=== PATIENT | male | born 1980 | race Caucasian/White ===

== ENCOUNTER → 2017-01-02 | Emergency (ER) | payer OTHER ==
--- NOTE | 2017-01-02 11:09 | ED CLINICAL REPORT ---
Clinical Report - Physicians/Mid Levels [facility] [address] [place] [address] 01/02/2017 9:17 Patient: JASMIN PARTIDA Time Seen: 10:25 Jan 02 2017. Arrived- By private vehicle. Historian- patient. CPT: ER phys charges level 4 (#[id number]). HISTORY OF PRESENT ILLNESS Chief Complaint: BACK PAIN. It is described as being moderate in degree. It is described as being in the area of the left upper lumbar spine, left mid lumbar spine, left lower lumbar spine, lower lumbar spine and right upper lumbar spine. It is described as being in the area of the right mid lumbar spine and right lower lumbar spine and radiating to the right thigh and to the left thigh. The quality is noted to be sharp, aching, "pain" and similar to prior episodes. Onset was yesterday and it is still present. No bladder dysfunction, bowel dysfunction, sensory loss or motor loss. Patient notes an injury. Mechanism of injury- (Came on after sex.). No other injury. Similar symptoms previously: Recent medical care: Not recently seen/assessed. REVIEW OF SYSTEMS No fever, chills, eye irritation, difficulty with urination or urinary frequency. No hematuria, skin rash, sore throat, cough or difficulty breathing. No chest pain, abdominal pain, nausea, vomiting or diarrhea. All systems otherwise negative, except as recorded above. PAST HISTORY Has had back injury. He has had prior back pain. Lifestyle / Substance Problems. Pneumonia. Puncture Wound. Epididymitis. Nephrolithiasis. Dental Caries. Dental Pain. Anxiety Reaction. Depression. Lumbar Strain. Asthma. Laceration. Arthritis. Bronchitis. Gastroesophageal Reflux Disease. Medications: Omeprazole Oral. Ibuprofen Oral. RisperiDONE Oral. Synthroid Oral. Zoloft Oral. Allergies: Vicodin. SOCIAL HISTORY Heavy tobacco smoker (cigarette)- less than 1 pack per day. Occasional alcohol use. No drug use. ADDITIONAL NOTES The nursing notes have been reviewed. PHYSICAL EXAM Vital Signs: 01/02/2017 09:39 BP: 115/80. HR: 87. RR: 20. O2 saturation: 99%. Temp: 98.2 F. Pain level now: 05/24. Appearance: Alert. Appears to be in pain. Patient in moderate distress. HEENT: Normal external inspection. ENT: Pharynx normal. Neck: Normal inspection. Neck nontender. Painless ROM. CVS: Heart sounds normal. Pulses normal. Respiratory: No respiratory distress. Breath sounds normal. Abdomen: No visible injury. Soft and nontender. Bowel sounds normal. Back: Moderate soft tissue tenderness in the right lower and left lower thoracic area and right upper, mid and lower and upper, mid and lower central lumbar area. Skin: Skin warm. Normal skin color. No rash. Extremities: Extremities exhibit normal ROM. Extremities nontender. Neuro: Oriented X 3. Mood/affect normal. No motor deficit. No sensory deficit. Reflexes normal. PROGRESS AND PROCEDURES Course of Care: Dilaudid 1mg IM Ativan 1 mg IM Toradol 60 mg IM Patient is stable. Symptoms better. Patient/family counseled. Disposition: Discharged. Condition: stable and improved. CLINICAL IMPRESSION Acute exacerbation of chronic low back pain. INSTRUCTIONS Warnings: SEDATIVE MEDICATION: You were given sedative medication during your visit. Do not drive or operate dangerous machinery. Your Current Medications: CONTINUE TAKING THE FOLLOWING MEDICATIONS: Ibuprofen Oral. Omeprazole Oral. RisperiDONE Oral. Synthroid Oral. Zoloft Oral. Prescription Medications: Ibuprofen 600mg tablets: take 1 tablet orally every 8 hours as needed for pain. Dispense thirty (30). No refills. Robaxin 750 mg: Take 2 orally every 6 hours as needed for muscle spasm. Dispense thirty (30). No refills. Substitution is permissible. Ultram 50 mg tablets: take 1-2 orally every 6 hours as needed for pain. Dispense twenty (20). No refills. Substitution is permissible. Follow-up: Follow up with your doctor in one week. Call for an appointment. Understanding of the discharge instructions verbalized by patient. Discharge instructions reviewed with and understanding was verbalized by spouse. (Electronically signed by Joshua Mix MD 01/06/2017 8:33)
--- NOTE | 2017-01-02 11:09 | ED CLINICAL REPORT ---
Clinical Report - Physicians/Mid Levels [facility] [address] [place] [address] 01/02/2017 9:17 Patient: JASMIN PARTIDA Time Seen: 10:25 Jan 02 2017. Arrived- By private vehicle. Historian- patient. CPT: ER phys charges level 4 (#[id number]). HISTORY OF PRESENT ILLNESS Chief Complaint: BACK PAIN. It is described as being moderate in degree. It is described as being in the area of the left upper lumbar spine, left mid lumbar spine, left lower lumbar spine, lower lumbar spine and right upper lumbar spine. It is described as being in the area of the right mid lumbar spine and right lower lumbar spine and radiating to the right thigh and to the left thigh. The quality is noted to be sharp, aching, "pain" and similar to prior episodes. Onset was yesterday and it is still present. No bladder dysfunction, bowel dysfunction, sensory loss or motor loss. Patient notes an injury. Mechanism of injury- (Came on after sex.). No other injury. Similar symptoms previously: Recent medical care: Not recently seen/assessed. REVIEW OF SYSTEMS No fever, chills, eye irritation, difficulty with urination or urinary frequency. No hematuria, skin rash, sore throat, cough or difficulty breathing. No chest pain, abdominal pain, nausea, vomiting or diarrhea. All systems otherwise negative, except as recorded above. PAST HISTORY Has had back injury. He has had prior back pain. Lifestyle / Substance Problems. Pneumonia. Puncture Wound. Epididymitis. Nephrolithiasis. Dental Caries. Dental Pain. Anxiety Reaction. Depression. Lumbar Strain. Asthma. Laceration. Arthritis. Bronchitis. Gastroesophageal Reflux Disease. Medications: Omeprazole Oral. Ibuprofen Oral. RisperiDONE Oral. Synthroid Oral. Zoloft Oral. Allergies: Vicodin. SOCIAL HISTORY Heavy tobacco smoker (cigarette)- less than 1 pack per day. Occasional alcohol use. No drug use. ADDITIONAL NOTES The nursing notes have been reviewed. PHYSICAL EXAM Vital Signs: 01/02/2017 09:39 BP: 115/80. HR: 87. RR: 20. O2 saturation: 99%. Temp: 98.2 F. Pain level now: 05/24. Appearance: Alert. Appears to be in pain. Patient in moderate distress. HEENT: Normal external inspection. ENT: Pharynx normal. Neck: Normal inspection. Neck nontender. Painless ROM. CVS: Heart sounds normal. Pulses normal. Respiratory: No respiratory distress. Breath sounds normal. Abdomen: No visible injury. Soft and nontender. Bowel sounds normal. Back: Moderate soft tissue tenderness in the right lower and left lower thoracic area and right upper, mid and lower and upper, mid and lower central lumbar area. Skin: Skin warm. Normal skin color. No rash. Extremities: Extremities exhibit normal ROM. Extremities nontender. Neuro: Oriented X 3. Mood/affect normal. No motor deficit. No sensory deficit. Reflexes normal. PROGRESS AND PROCEDURES Course of Care: Dilaudid 1mg IM Ativan 1 mg IM Toradol 60 mg IM Patient is stable. Symptoms better. Patient/family counseled. Disposition: Discharged. Condition: stable and improved. CLINICAL IMPRESSION Acute exacerbation of chronic low back pain. INSTRUCTIONS Warnings: SEDATIVE MEDICATION: You were given sedative medication during your visit. Do not drive or operate dangerous machinery. Your Current Medications: CONTINUE TAKING THE FOLLOWING MEDICATIONS: Ibuprofen Oral. Omeprazole Oral. RisperiDONE Oral. Synthroid Oral. Zoloft Oral. Prescription Medications: Ibuprofen 600mg tablets: take 1 tablet orally every 8 hours as needed for pain. Dispense thirty (30). No refills. Robaxin 750 mg: Take 2 orally every 6 hours as needed for muscle spasm. Dispense thirty (30). No refills. Substitution is permissible. Ultram 50 mg tablets: take 1-2 orally every 6 hours as needed for pain. Dispense twenty (20). No refills. Substitution is permissible. Follow-up: Follow up with your doctor in one week. Call for an appointment. Understanding of the discharge instructions verbalized by patient. Discharge instructions reviewed with and understanding was verbalized by spouse. (Electronically signed by Joshua Mix MD 01/06/2017 8:33)
--- NOTE | 2017-01-02 11:09 | ED NURSING NOTES ---
Clinical Report - Nurses [facility] [address] [place] [address] 01/02/2017 9:17 Patient: JASMIN PARTIDA TRIAGE Triage time 09:39. Acuity: LEVEL 4. Chief Complaint: (Low back pain onset yesterday after intercourse. Hx low back pain. Pain radiates up his back and down both legs.). 09:45 01/02/17. SEPSIS SCREEN: Sepsis Screen. Negative (no infection suspected/documented). TIFFANY COMA SCORE: Novelty Coma Scale: 15- eyes open spontaneously (4); best verbal response- oriented x 4 (5); best motor response- obeys commands (6). --09:45 Andres Schaefer R.N. 09:39 01/02/17. BP: 115/80 (regular adult cuff) taken on the right arm, while sitting. HR: 87. RR: 20. O2 saturation: 99% on room air. Temp: 98.2 F (oral). Pain level now: 05/24. Additional comments: by pulse ox. --09:45 Andres Schaefer R.N. Weight: 106.5 kg stated. Height/Length: 71 inches Per Patient. BMI: 32.8. --09:40 Andres Schaefer R.N. Medications RisperiDONE Oral. Synthroid Oral. Zoloft Oral. --09:41 Andres Schaefer R.N. Ibuprofen Oral. --09:42 Andres Schaefer R.N. Omeprazole Oral. --09:42 Andres Schaefer R.N. Allergies Vicodin. --09:41 Andres Schaefer R.N. History Arrived by private vehicle. Historian: patient. Accompanied by family. SOCIAL HX: Heavy tobacco smoker (cigarette)- less than 1 pack per day. Occasional alcohol use. No drug use. ABUSE ASSESSMENT: No report of abuse. --09:45 Andres Schaefer R.N. PROBLEMS: Lifestyle / Substance Problems. Pneumonia. Puncture Wound. Epididymitis. Nephrolithiasis. Dental Caries. Dental Pain. Anxiety Reaction. Depression. Lumbar Strain. Asthma. Laceration. Arthritis. Bronchitis. Gastroesophageal Reflux Disease. --09:42 Andres Schaefer R.N. ADDITIONAL SURGERIES: Tonsillectomy. --09:42 Andres Schaefer R.N. Interventions ID band on patient. To treatment room. --09:45 Andres Schaefer R.N. PHYSICAL ASSESSMENT 09:48 01/02/17. Ambulatory to room. ( Low back pain that radiates up his back and down into his legs.). GENERAL / NEURO / PSYCH: Alert. Oriented X 4. Appears in pain. Shuffling gait. HEENT: Pupils equal, round and reactive to light. No facial asymmetry noted. Mucous membranes are pink. RESPIRATORY: Respirations not labored. Chest nontender. Breath sounds within normal limits. CVS: Capillary refill less than 2 seconds. Pulses within normal limits. GI / : Abdomen soft and nontender and normal bowel sounds. SKIN: Skin is warm and dry. --09:50 Andres Schaefer R.N. NURSING PROGRESS NOTES 09:50 01/02/17. Patient gowned. Reassurance given. Two patient identifiers checked. Call light placed in reach. Bed placed in lowest position. Brakes of bed on. Patient placed in chair. Patient ready for evaluation- chart flagged. --09:50 Andres Schaefer R.N. 11:00 01/02/2017 Dilaudid (HYDROmorphone HCl PF) IM 1 mg given. Given in the left gluteus benjamin. Allergies verified, confirmed 5 rights and sedative warning given to the patient and patient's family. --11:19 Andres Schaefer R.N. 11:00 01/02/2017 Toradol (Ketorolac Tromethamine) IM 60 mg given. Given in the right gluteus benjamin. Allergies verified and confirmed 5 rights. --11:19 Andres Schaefer R.N. 11:01/02/2017 Ativan (LORazepam) IM 1 mg given. Given in the right gluteus benjamin. Allergies verified, confirmed 5 rights and sedative warning given to the patient and patient's family. --11:20 Andres Schaefer R.N. DISPOSITION / DISCHARGE Condition at departure: improved. No learning barriers present. Reviewed medication(s) side effects, precautions, dosing and course information. Prescription(s) given to the patient. Patient verbalized understanding. Written instructions provided in Macedonian. The patient was discharged home and accompanied by spouse. He left the Emergency Department ambulatory and via private vehicle. Spouse driving. Medication list reviewed and validated. --11:22 Rose Mary Yan R.N. 11:21 01/02/17. BP: 116/76. HR: 82. RR: 20. O2 saturation: 99%. Temp: deferred. Pain level now: 03/23. 09:39 01/02/17. BP: 115/80 (regular adult cuff) taken on the right arm, while sitting. HR: 87. RR: 20. O2 saturation: 99% on room air. Temp: 98.2 F (oral). Pain level now: 05/24. Additional comments: by pulse ox. --11:22 Rose Mary Yan R.N. Locked/Released at 01/02/2017 11:23 by Rose Mary Yan R.N.
--- NOTE | 2017-01-02 11:09 | ED ORDER SUMMARY ---
..... Patient: JASMIN PARTIDA OrderSheet [facility] VisitID: [id number] [address] [place] [address] 36y, M Registration Date/Time: 01/02/2017 ORDER SHEET Weight: 106.5 kg (stated) Allergies: Vicodin GENERAL ORDERS: MEDICATION ORDERS: Dilaudid IM 1 mg (NOW) (10:01/02/2017 Nikky VICENTE) (Ack 10:56 DMaziarka R.N.) (11:19 JSimbeck R.N.) Toradol IM 60 mg (NOW) (10:01/02/2017 Nikky VICENTE) (Ack 10:56 DMaziarka R.N.) (11:19 JSimbeck R.N.) Ativan IM 1 mg (NOW) (:01/02/2017 Nikky VICENTE) (Ack 10:56 DMaziarka R.N.) (11:20 JSimbeck R.N.) IV FLUIDS: ORDER SHEET NOTES: [Electronically signed by Rose Mary Yan R.N. (11:01/02/2017)] [Electronically signed by Joshua Mix MD (08:33 01/06/2017)] [Electronically locked/signed by Rose Mary Yan R.N. (11:01/02/2017)]
--- NOTE | 2017-01-02 11:09 | ED ORDER SUMMARY ---
..... Patient: JASMIN PARTIDA OrderSheet [facility] VisitID: [id number] [address] [place] [address] 36y, M Registration Date/Time: 01/02/2017 ORDER SHEET Weight: 106.5 kg (stated) Allergies: Vicodin GENERAL ORDERS: MEDICATION ORDERS: Dilaudid IM 1 mg (NOW) (10:01/02/2017 Nikky VICENTE) (Ack 10:56 DMaziarka R.N.) (11:19 JSimbeck R.N.) Toradol IM 60 mg (NOW) (10:01/02/2017 Nikky VICENTE) (Ack 10:56 DMaziarka R.N.) (11:19 JSimbeck R.N.) Ativan IM 1 mg (NOW) (:01/02/2017 Nikky VICENTE) (Ack 10:56 DMaziarka R.N.) (11:20 JSimbeck R.N.) IV FLUIDS: ORDER SHEET NOTES: [Electronically signed by Rose Mary Yan R.N. (11:01/02/2017)] [Electronically signed by Joshua Mix MD (08:33 01/06/2017)] [Electronically locked/signed by Rose Mary Yan R.N. (11:01/02/2017)]
--- NOTE | 2017-01-06 08:34 | ED MAR SUMMARY ---
..... Medication Administration Record Merged With [facility] [address] [place] [address] Patient: JASMIN PARTIDA Visit ID: [id number] 36y, M Weight: 106.5 kg Height/Length: 71 in BMI: 32.8 ALLERGIES: Vicodin Given 11:01/02/2017 Andres Schaefer R.N. Medication Administered: DILAUDID [IM] (HYDROMORPHONE HCL PF), Dose: 1 mg IM. Medication Ordered: Dilaudid IM 1 mg (NOW). Given 11:01/02/2017 Andres Schaefer R.N. Medication Administered: TORADOL [IM] (KETOROLAC TROMETHAMINE), Dose: 60 mg IM. Medication Ordered: Toradol IM 60 mg (NOW). Given 11:01/02/2017 Andres Schaefer R.N. Medication Administered: ATIVAN [IM] (LORAZEPAM), Dose: 1 mg IM. Medication Ordered: Ativan IM 1 mg (NOW).
--- NOTE | 2017-01-06 08:34 | ED MED RECONCILIATION SUMMARY ---
Patient: JASMIN PARTIDA Medication Reconciliation Report [facility] VisitID: [id number] [address] [place] [address] 36y, M Registration Date/Time: 01/02/2017 Weight: 106.5 kg Height/Length: 71 in. BMI: 32.8 ALLERGIES: Vicodin The patient's Home Medications are listed below: CONTINUE TAKING THE FOLLOWING MEDICATIONS: Ibuprofen Oral Omeprazole Oral RisperiDONE Oral Synthroid Oral Zoloft Oral The source(s) of the original Home Medication information: Not obtained. The following Medications were given to the patient in the Emergency Department: Dilaudid [IM] IM 1 mg, administered: 01/02/2017 11:00:00 AM Toradol [IM] IM 60 mg, administered: 01/02/2017 11:00:00 AM Ativan [IM] IM 1 mg, administered: 01/02/2017 11:00:00 AM The following Medications were prescribed to the patient: Ibuprofen 600mg tablets: take 1 tablet orally every 8 hours as needed for pain. Dispense thirty (30). No refills. -- Joshua Mix MD Robaxin 750 mg: Take 2 orally every 6 hours as needed for muscle spasm. Dispense thirty (30). No refills. Substitution is permissible. -- Joshua Mix MD Ultram 50 mg tablets: take 1-2 orally every 6 hours as needed for pain. Dispense twenty (20). No refills. Substitution is permissible. -- Joshua Mix MD
--- NOTE | 2017-01-06 08:34 | ED DISCHARGE INSTRUCTIONS ---
Patient: JASMIN PARTIDA General Instructions [facility] VisitID: [id number] [place] [address] 36y, M Registration Date/Time: 01/02/2017 Acute exacerbation of chronic low back pain. INSTRUCTIONS Warnings: SEDATIVE MEDICATION: You were given sedative medication during your visit. Do not drive or operate dangerous machinery. Your Current Medications: CONTINUE TAKING THE FOLLOWING MEDICATIONS: Ibuprofen Oral. Omeprazole Oral. RisperiDONE Oral. Synthroid Oral. Zoloft Oral. Prescription Medications: Ibuprofen 600mg tablets: take 1 tablet orally every 8 hours as needed for pain. Dispense thirty (30). No refills. Robaxin 750 mg: Take 2 orally every 6 hours as needed for muscle spasm. Dispense thirty (30). No refills. Substitution is permissible. Ultram 50 mg tablets: take 1-2 orally every 6 hours as needed for pain. Dispense twenty (20). No refills. Substitution is permissible. Follow-up: Follow up with your doctor in one week. Call for an appointment. Understanding of the discharge instructions verbalized by patient. Discharge instructions reviewed with and understanding was verbalized by spouse. (Electronically signed by Joshua Mix MD 01/06/2017 8:33)
--- NOTE | 2017-01-06 08:34 | ED MAR SUMMARY ---
..... Medication Administration Record [facility] [address] [place] [address] Patient: JASMIN PARTIDA Visit ID: [id number] 36y, M Weight: 106.5 kg Height/Length: 71 in BMI: 32.8 ALLERGIES: Vicodin Given 11:01/02/2017 Andres Schaefer R.N. Medication Administered: DILAUDID [IM] (HYDROMORPHONE HCL PF), Dose: 1 mg IM. Medication Ordered: Dilaudid IM 1 mg (NOW). Given 11:01/02/2017 Andres Schaefer R.N. Medication Administered: TORADOL [IM] (KETOROLAC TROMETHAMINE), Dose: 60 mg IM. Medication Ordered: Toradol IM 60 mg (NOW). Given 11:01/02/2017 Andres Schaefer R.N. Medication Administered: ATIVAN [IM] (LORAZEPAM), Dose: 1 mg IM. Medication Ordered: Ativan IM 1 mg (NOW).
--- NOTE | 2017-01-06 08:34 | ED DISCHARGE INSTRUCTIONS ---
Patient: JASMIN PARTIDA General Instructions [facility] VisitID: [id number] [place] [address] 36y, M Registration Date/Time: 01/02/2017 Acute exacerbation of chronic low back pain. INSTRUCTIONS Warnings: SEDATIVE MEDICATION: You were given sedative medication during your visit. Do not drive or operate dangerous machinery. Your Current Medications: CONTINUE TAKING THE FOLLOWING MEDICATIONS: Ibuprofen Oral. Omeprazole Oral. RisperiDONE Oral. Synthroid Oral. Zoloft Oral. Prescription Medications: Ibuprofen 600mg tablets: take 1 tablet orally every 8 hours as needed for pain. Dispense thirty (30). No refills. Robaxin 750 mg: Take 2 orally every 6 hours as needed for muscle spasm. Dispense thirty (30). No refills. Substitution is permissible. Ultram 50 mg tablets: take 1-2 orally every 6 hours as needed for pain. Dispense twenty (20). No refills. Substitution is permissible. Follow-up: Follow up with your doctor in one week. Call for an appointment. Understanding of the discharge instructions verbalized by patient. Discharge instructions reviewed with and understanding was verbalized by spouse. (Electronically signed by Joshua Mix MD 01/06/2017 8:33)
--- NOTE | 2017-01-06 08:34 | ED MED RECONCILIATION SUMMARY ---
Patient: JASMIN PARTIDA Medication Reconciliation Report [facility] VisitID: [id number] [address] [place] [address] 36y, M Registration Date/Time: 01/02/2017 Weight: 106.5 kg Height/Length: 71 in. BMI: 32.8 ALLERGIES: Vicodin The patient's Home Medications are listed below: CONTINUE TAKING THE FOLLOWING MEDICATIONS: Ibuprofen Oral Omeprazole Oral RisperiDONE Oral Synthroid Oral Zoloft Oral The source(s) of the original Home Medication information: Not obtained. The following Medications were given to the patient in the Emergency Department: Dilaudid [IM] IM 1 mg, administered: 01/02/2017 11:00:00 AM Toradol [IM] IM 60 mg, administered: 01/02/2017 11:00:00 AM Ativan [IM] IM 1 mg, administered: 01/02/2017 11:00:00 AM The following Medications were prescribed to the patient: Ibuprofen 600mg tablets: take 1 tablet orally every 8 hours as needed for pain. Dispense thirty (30). No refills. -- Joshua Mix MD Robaxin 750 mg: Take 2 orally every 6 hours as needed for muscle spasm. Dispense thirty (30). No refills. Substitution is permissible. -- Joshua Mix MD Ultram 50 mg tablets: take 1-2 orally every 6 hours as needed for pain. Dispense twenty (20). No refills. Substitution is permissible. -- Joshua Mix MD
== END ==
LOC: ED SRH 09:15
DX: M54.5 Low back pain (principal); G89.29 Other chronic pain; K21.9 Gastro-esophageal reflux disease without esophagitis; Z79.899 Other long term (current) drug therapy; F17.210 Nicotine dependence, cigarettes, uncomplicated; Z88.5 Allergy status to narcotic agent